=== PATIENT | female | born 1945 | race Caucasian/White ===

== ENCOUNTER → 2016-08-17 16:26 | Outpatient (CLI) | payer MEDICARE, OTHER ==
[2015-10-08 05:55] VITALS: BMI 45.0
[~2016-08-17 16:26] MED LIST: 2; ALBUTEROL0.63 MG/3; BAYER CHEWABLE81 MG PO; CALCIUM 600+D T1 TA1 PO; COCONUT OIL; COZAAR100 MG PO; DILAUDID2 MG PO; FISH OIL 500 MG1 CAP PO; GLUCOPHAGE500 MG PO; LANTUS SOL100 UNIT/1 SC; LIPITOR20 MG PO; LYRICA50 MG PO; NORVASC5 MG PO; PROAIR HFA8.5 GM INH; QVAR8.7 GM INH; SINGULAIR10 MG PO; TOPROL XL25 MG PO; ZYLOPRIM300 MG PO; [UNRECOGNIZED DRUG - OTHER]
== END | disposition home or self-care (01) ==
LOC: D.MAMMO 11:00
DX: Z12.31 Encounter for screening mammogram for malignant neoplasm of breast (principal)

== ENCOUNTER → 2016-09-14 16:21 | Outpatient (CLI) | payer MEDICARE, OTHER ==
[2015-10-08 05:55] VITALS: BMI 45.0
== END | disposition home or self-care (01) ==
LOC: D.MAMMO 09:00
DX: R92.8 Other abnormal and inconclusive findings on diagnostic imaging of breast (principal)

== ENCOUNTER 2018-12-23 18:52 | Emergency (ER) | payer MEDICARE, OTHER ==
[2018-12-23 19:18] LABS: BASOPHILS 0.3 % (0-2); EOSINOPHILS 3.3 % (0-7); HEMATOCRIT 33.7 % (36.0-48.0); HEMOGLOBIN 10.4 g/dL (12-16); IMMATURE GRANULOCYTES 0.4 % (0-5); LYMPHOCYTES 21.4 % (15-50); MCH 27.5 pg (26.0-34.0); MCHC 30.9 g/dL (31.0-37.0); MCV 89.2 fL (80.0-100.0); MONOCYTES 9.1 % (2-11); NEUTROPHILS 65.5 % (40-80); RBC 3.78 10x6/uL (4.00-5.40); RDW 16.7 % (11.5-14.5); WBC 9.6 10x3/uL (4.8-10.8)
[2018-12-23 19:21] LABS: PLATELET COUNT 341 10x3/uL (130-400)
[2018-12-23 19:33] LABS: APPEARANCE CLEAR (CLEAR); BILIRUBIN NEGATIVE (NEGATIVE); COLOR STRAW (YELLOW); GLUCOSE NEGATIVE (NEGATIVE); KETONE NEGATIVE (NEGATIVE); NITRITE NEGATIVE (NEGATIVE); PROTEIN NEGATIVE (NEGATIVE); UROBILINOGEN NORMAL (NORMAL)
[2018-12-23 19:35] LABS: ALBUMIN 3.6 g/dL (3.4-5.0); ALKALINE PHOSPHATASE 143 U/L (46-116); ALT (SGPT) 28 U/L (10-68); BILIRUBIN - TOTAL 0.17 mg/dL (0.2-1.3); CALC OSMOLALITY 292 mosm/kg (275-300); CALCIUM 8.8 mg/dL (8.5-10.1); CHLORIDE - SERUM 107 mmol/L (98-107); CREATININE - SERUM 1.9 mg/dL (0.6-1.3); GLUCOSE 142 mg/dL (74-106); POTASSIUM - SERUM 5.6 mmol/L (3.5-5.1); PROTEIN - SERUM 8.4 g/dL (6.4-8.2); SODIUM 142 mmol/L (136-145); UREA NITROGEN 36 mg/dL (7-18); eGFR NON AFRICAN AMERICAN 27 mL/min (90-120)
[2018-12-23 19:39] LABS: MAGNESIUM - SERUM 1.4 mg/dL (1.8-2.4)
[2018-12-23 19:41] LABS: TROPONIN-I < 0.017 ng/mL (0.000-0.060)
== END 2018-12-23 22:30 | disposition home or self-care (01) ==
LOC: D.ER 18:52
PROVIDERS: Emergency Medicine
DX: E87.5 Hyperkalemia (principal); E83.42 Hypomagnesemia; E86.0 Dehydration; N28.9 Disorder of kidney and ureter, unspecified

== ENCOUNTER → 2019-12-09 09:02 | Outpatient (CLI) | payer MEDICARE, OTHER ==
[2018-12-23 18:52] VITALS: BMI 43.2
== END | disposition home or self-care (01) ==
LOC: D.RT 12-02 13:00 → D.RAD 12-02 14:00 → D.RT 09:00
PROVIDERS: ATTEND Internal Medicine Pulmonary Disease
DX: R06.09 Other forms of dyspnea (principal)